=== PATIENT | female | born 1970 | race Two or more races ===

== ENCOUNTER 2019-07-07 15:45 | Emergency (ER) | payer OTHER ==
[~2019-07-07] VITALS: Ht 152.4 cm; Wt 59.0 kg
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
[2019-07-07] MEDS ORDERED: TDAP [DIPH/PERTUSSIS/TET] 0.5 ML VIAL IM ONE ×2 (16:00→16:11)
--- NOTE | 2019-07-07 16:16 | NUR ---
Patient discharged to home in stable condition. Written and verbal after care instructions given. Patient verbalizes understanding of instruction.
[2019-07-07 16:18] VITALS: BP 128/74
== END 2019-07-07 16:18 | disposition home or self-care (01) ==
LOC: ER 15:47
DX: L97.929 Non-pressure chronic ulcer of unspecified part of left lower leg with unspecified severity (principal); L03.116 Cellulitis of left lower limb; F17.200 Nicotine dependence, unspecified, uncomplicated; Z88.0 Allergy status to penicillin
CPT/HCPCS: 90715